=== PATIENT | female | born 1970 | race Caucasian/White ===

== ENCOUNTER → 2020-09-03 | Outpatient (CLI) | payer BC | LOC: MC.RAD 09:59 | DX: R92.0 Mammographic microcalcification found on diagnostic imaging of breast (principal) ==

== ENCOUNTER → 2021-05-13 | Outpatient (CLI) | payer BC | LOC: MC.RAD 10:05 | DX: R92.0 Mammographic microcalcification found on diagnostic imaging of breast (principal) ==

== ENCOUNTER → 2022-05-18 | Outpatient (CLI) | payer BC | LOC: MC.RAD 14:58 | DX: Z12.31 Encounter for screening mammogram for malignant neoplasm of breast (principal) ==

== ENCOUNTER → 2023-11-28 | Outpatient (CLI) | payer BC | LOC: MC.RAD 14:52 | DX: Z12.31 Encounter for screening mammogram for malignant neoplasm of breast (principal) ==